=== PATIENT | female | born 1945 | race Caucasian/White ===

== ENCOUNTER 2016-06-29 10:15 | Outpatient (CLI) | payer MEDICARE, BC ==
[2016-06-29 10:58] LABS: Bilirubin Negative (Negative); Blood, Urine Negative (Negative); Clarity Clear (Clear); Glucose, Urine (Dipstick) Negative (Negative); Leukocyte Negative (Negative); Nitrite Negative (Negative); Protein, Urine (Dipstick) Negative (Neg-Trace); Urobilinogen 0.2 mg/dL (0.2-1.0); pH, Urine 5.5 (5.0-9.0)
== END 2016-06-29 10:16 ==
LOC: MADLAB 10:15
PROVIDERS: ATTEND Nurse Practitioner Family
DX: R30.0 Dysuria (principal)
CPT/HCPCS: 36415; 81003

== ENCOUNTER 2016-08-23 07:28 | Outpatient (CLI) | payer MEDICARE, BC ==
[2016-08-23 08:38] LABS: Hemoglobin A1c 5.4 % (4.0-6.0)
[2016-08-23 08:51] LABS: ALT (SGPT) 27 U/L (8-55); AST (SGOT) 19 U/L (5-34); Albumin 3.9 g/dL (3.4-4.8); Alkaline Phosphatase 95 U/L (40-150); Anion Gap 16 mmol/L (10-20); BUN (Urea Nitrogen) 10 mg/dL (9.8-20.1); Bilirubin, Direct 0.1 mg/dL (0.1-0.3); Bilirubin, Total 0.4 mg/dL (0.2-1.2); Calc. Creatinine Clearance 0 mL/min (70-130); Calcium 9.3 mg/dL (7.8-10.44); Carbon Dioxide 23 mmol/L (23-31); Chloride 106 mmol/L (98-107); Cholesterol 189 mg/dl (< 200 Desired); Estimated GFR-MDRD 82; Glucose 100 mg/dL (80-115); HDL Cholesterol 47 mg/dL (>60 Neg Risk); LDL Cholesterol, Calculated 97 mg/dL; Potassium 4.2 mmol/L (3.5-5.1); Protein, Total 7.3 g/dL (6.0-8.3); Sodium 141 mmol/L (136-145); Triglycerides 225 mg/dL (Less than 150)
[2016-08-23 08:56] LABS: #Eosinphils 0.1 thou/uL (0.0-0.7); #Lymphocytes 1.5 thou/uL (1.20-3.40); #Monocytes 0.4 thou/uL (0.11-0.59); #Neutrophils 2.7 thou/uL (1.40-6.50); %Eosinophils 2.2 % (0.0-10.0); %Lymphocytes 32.1 % (21.0-51.0); %Monocytes 7.4 % (0.0-10.0); %Neutrophils 57.3 % (42.0-75.0); Hemoglobin 15.3 g/dL (12.0-16.0); Mean Corpuscular HGB CONC 33.7 g/dL (32.0-36.0); Mean Platelet Volume 6.2 fL (7.4-10.4); Platelet Count 270 thou/uL (130-400); RBC Distribution Width 11.5 % (11.5-14.5); Red Blood Cell (RBC) Count 4.77 mill/uL (4.20-5.40); White Blood Cell (WBC) Count 4.7 thou/uL (4.8-10.8)
[2016-08-23 10:08] LABS: Clarity c (Clear); Specific Gravity, Urine 1.015 (1.005-1.030)
[2016-08-23 10:09] LABS: Bilirubin Negative (Negative); Blood, Urine Negative (Negative); Glucose, Urine (Dipstick) Negative (Negative); Leukocyte Negative (Negative); Nitrite Negative (Negative); Protein, Urine (Dipstick) Negative (Neg-Trace); Urobilinogen 0.2 mg/dL (0.2-1.0)
== END 2016-08-23 07:29 | disposition home or self-care (01) ==
LOC: MADLAB 07:28
PROVIDERS: ATTEND Family Medicine
DX: E78.00 Pure hypercholesterolemia, unspecified (principal); E03.9 Hypothyroidism, unspecified; R30.0 Dysuria; I10 Essential (primary) hypertension; Z79.899 Other long term (current) drug therapy
CPT/HCPCS: 36415; 80048; 80061; 80076; 81003; 83036; 84443; 85025

== ENCOUNTER 2017-09-23 22:31 | Emergency (ER) | payer MEDICARE, BC ==
[2017-09-24] MEDS ORDERED: methylPREDNISolone Sod Succ/PF 125 MG/2 ML VIAL ONE (02:01)
[2017-09-24] MEDS ORDERED: Dexamethasone 10 MG/ML VIAL ONE (02:01)
[2017-09-24] MEDS ORDERED: Ketorolac Tromethamine 30 MG/ML VIAL ONE (02:01)
== END 2017-09-24 03:25 | disposition home or self-care (01) ==
LOC: MADERS 22:31
DX: L56.8 Other specified acute skin changes due to ultraviolet radiation (principal); I10 Essential (primary) hypertension
CPT/HCPCS: 96374; 96375; J1100; J1885; J2930

== ENCOUNTER 2018-04-25 22:46 | Emergency (ER) | payer MEDICARE, OTHER ==
[2018-04-25] MEDS ORDERED: predniSONE 20 MG TAB ONE (23:26)
== END 2018-04-25 23:35 | disposition home or self-care (01) ==
LOC: MADERS 22:46
DX: L30.9 Dermatitis, unspecified (principal); E78.00 Pure hypercholesterolemia, unspecified; G47.30 Sleep apnea, unspecified; I10 Essential (primary) hypertension; Z79.899 Other long term (current) drug therapy; Z79.82 Long term (current) use of aspirin
CPT/HCPCS: 99282

== ENCOUNTER 2018-04-26 14:57 | Emergency (ER) | payer MEDICARE, OTHER | END 2018-04-26 15:40 | disposition home or self-care (01) | LOC: MADERS 14:57 | DX: L30.9 Dermatitis, unspecified (principal); G47.30 Sleep apnea, unspecified; I10 Essential (primary) hypertension | CPT/HCPCS: 99282 ==

== ENCOUNTER 2018-05-17 18:12 | Emergency (ER) | payer MEDICARE, OTHER ==
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
== END 2018-05-17 20:00 | disposition home or self-care (01) ==
LOC: MADERS 18:12
DX: S63.610A Unspecified sprain of right index finger, initial encounter (principal); S60.221A Contusion of right hand, initial encounter; S20.212A Contusion of left front wall of thorax, initial encounter; I10 Essential (primary) hypertension; G47.30 Sleep apnea, unspecified; V89.2XXA Person injured in unspecified motor-vehicle accident, traffic, initial encounter
CPT/HCPCS: 71046

== ENCOUNTER 2018-11-02 04:22 | Emergency (ER) | payer MEDICARE | END 2018-11-02 05:06 | disposition home or self-care (01) | LOC: MADERS 04:22 | DX: I10 Essential (primary) hypertension (principal); E03.9 Hypothyroidism, unspecified; K21.9 Gastro-esophageal reflux disease without esophagitis; E78.5 Hyperlipidemia, unspecified; G47.30 Sleep apnea, unspecified; Z79.82 Long term (current) use of aspirin; Z79.899 Other long term (current) drug therapy | CPT/HCPCS: 93005 ==

== ENCOUNTER 2019-01-10 21:09 | Emergency (ER) | payer MEDICARE | END 2019-01-10 22:00 | disposition home or self-care (01) | LOC: MADERS 21:09 | DX: L71.9 Rosacea, unspecified (principal); E03.9 Hypothyroidism, unspecified; K21.9 Gastro-esophageal reflux disease without esophagitis; E78.5 Hyperlipidemia, unspecified; I10 Essential (primary) hypertension; G47.30 Sleep apnea, unspecified | CPT/HCPCS: 99282 ==

== ENCOUNTER 2019-05-08 23:18 | Emergency (ER) | payer MEDICARE, SELFPAY ==
[2019-05-08] MEDS ORDERED: Ondansetron ODT 4 MG TAB ONE (23:42)
== END 2019-05-09 00:06 | disposition home or self-care (01) ==
LOC: MADERS 23:18
DX: J06.9 Acute upper respiratory infection, unspecified (principal); R11.0 Nausea; I10 Essential (primary) hypertension; E03.9 Hypothyroidism, unspecified; F41.9 Anxiety disorder, unspecified; G47.00 Insomnia, unspecified; K21.9 Gastro-esophageal reflux disease without esophagitis; E78.5 Hyperlipidemia, unspecified; G47.30 Sleep apnea, unspecified; Z79.899 Other long term (current) drug therapy
CPT/HCPCS: 99283; Q0162

== ENCOUNTER 2019-05-09 03:37 | Emergency (ER) | payer SELFPAY ==
[2019-05-09] MEDS ORDERED: Metoprolol Tartrate 5 MG/5 ML VIAL ONE (04:12)
[2019-05-09 04:27] LABS: #Basophils 0.1 thou/uL (0.0-0.2); #Lymphocytes 0.4 thou/uL (1.20-3.40); #Monocytes 0.5 thou/uL (0.11-0.59); #Neutrophils 7.8 thou/uL (1.40-6.50); %Basophils 0.8 % (0.0-1.0); %Eosinophils 0.2 % (0.0-10.0); %Lymphocytes 4.4 % (21.0-51.0); %Monocytes 6.1 % (0.0-10.0); %Neutrophils 88.6 % (42.0-75.0); Hemoglobin 13.9 g/dL (12.0-16.0); Mean Corpuscular HGB CONC 32.6 g/dL (32.0-36.0); Mean Corpuscular Hemoglobin 32.6 pg (27.0-31.0); Mean Corpuscular Volume 99.8 fL (78.0-98.0); Mean Platelet Volume 5.7 fL (7.4-10.4); Platelet Count 244 thou/uL (130-400); RBC Distribution Width 11.9 % (11.5-14.5); Red Blood Cell (RBC) Count 4.26 mill/uL (4.20-5.40); White Blood Cell (WBC) Count 8.8 thou/uL (4.8-10.8)
[2019-05-09 04:30] LABS: Bilirubin Negative (Negative); Blood, Urine Negative (Negative); Clarity Clear (Clear); Glucose, Urine (Dipstick) Negative (Negative); Leukocyte Negative (Negative); Nitrite Negative (Negative); Protein, Urine (Dipstick) Negative (Neg-Trace); Urobilinogen 0.2 mg/dL (Less than 2)
[2019-05-09 04:43] LABS: ALT (SGPT) 37 U/L (8-55); AST (SGOT) 19 U/L (5-34); Albumin 3.9 g/dL (3.4-4.8); Alkaline Phosphatase 91 U/L (40-110); Anion Gap 14 mmol/L (10-20); BUN (Urea Nitrogen) 11 mg/dL (9.8-20.1); Bilirubin, Total 0.7 mg/dL (0.2-1.2); Calc. Creatinine Clearance 0 mL/min (70-130); Calcium 8.9 mg/dL (7.8-10.44); Carbon Dioxide 28 mmol/L (23-31); Chloride 101 mmol/L (98-107); Estimated GFR-MDRD 74; Globulin 2.7 g/dL (2.4-3.5); Glucose 132 mg/dL (83-110); Lipase 14 U/L (8-78); Potassium 3.8 mmol/L (3.5-5.1); Protein, Total 6.6 g/dL (6.0-8.3); Sodium 139 mmol/L (136-145)
[2019-05-09] MEDS ORDERED: Acetaminophen 500 MG TAB ONE (05:08)
[2019-05-09] MEDS ORDERED: Oseltamivir 75 MG CAP ONE (05:08)
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
[2019-05-09] MEDS ORDERED: Sodium Chloride 0.9% 100 ML BAG ONE (07:27)
== END 2019-05-09 05:49 | disposition home or self-care (01) ==
LOC: MADERS 03:37
DX: J11.1 Influenza due to unidentified influenza virus with other respiratory manifestations (principal); I10 Essential (primary) hypertension; E03.9 Hypothyroidism, unspecified; E78.5 Hyperlipidemia, unspecified; F41.9 Anxiety disorder, unspecified; K21.9 Gastro-esophageal reflux disease without esophagitis; G47.30 Sleep apnea, unspecified
CPT/HCPCS: 71275; 72191; 74175; 80053; 81003; 83605; 83690; 84484; 85025; 85379; 87804; 96374; J3490

== ENCOUNTER 2019-12-03 22:03 | Emergency (ER) | payer MEDICARE ==
[2019-12-03 22:29] LABS: #Lymphocytes 0.7 thou/uL (1.20-3.40); %Basophils 0.2 % (0.0-1.0); %Lymphocytes 12.2 % (21.0-51.0); %Monocytes 0.5 % (0.0-10.0); %Neutrophils 87.1 % (42.0-75.0); Hemoglobin 15.2 g/dL (12.0-16.0); Mean Corpuscular HGB CONC 32.9 g/dL (32.0-36.0); Mean Corpuscular Hemoglobin 31.6 pg (27.0-31.0); Mean Corpuscular Volume 96.2 fL (78.0-98.0); Mean Platelet Volume 5.8 fL (7.4-10.4); Platelet Count 351 thou/uL (130-400); RBC Distribution Width 11.4 % (11.5-14.5); Red Blood Cell (RBC) Count 4.82 mill/uL (4.20-5.40); White Blood Cell (WBC) Count 5.8 thou/uL (4.8-10.8)
--- NOTE | 2019-12-03 22:39 | RAD ---
XR Chest 1 View Portable HISTORY: Chest pain COMPARISON: 05/17/2018 FINDINGS: The heart size is at upper limits of normal. The lungs are well expanded without focal area s of consolidation, pneumothorax or pleural effusions. IMPRESSION: No radiographic evidence of acute cardiopulmonary process.
[2019-12-03 22:50] LABS: ALT (SGPT) 49 U/L (8-55); AST (SGOT) 30 U/L (5-34); Albumin 4.5 g/dL (3.4-4.8); Alkaline Phosphatase 107 U/L (40-110); Anion Gap 18 mmol/L (10-20); BUN (Urea Nitrogen) 18 mg/dL (9.8-20.1); Bilirubin, Total 0.4 mg/dL (0.2-1.2); Calc. Creatinine Clearance 0 mL/min (70-130); Calcium 9.6 mg/dL (7.8-10.44); Carbon Dioxide 24 mmol/L (23-31); Chloride 102 mmol/L (98-107); Estimated GFR-MDRD 67; Globulin 3.5 g/dL (2.4-3.5); Glucose 174 mg/dL (83-110); Lipase 18 U/L (8-78); Potassium 4.1 mmol/L (3.5-5.1); Sodium 140 mmol/L (136-145)
[2019-12-03] MEDS ORDERED: Aspirin Chewable 81 MG TAB ONE (23:02)
== END 2019-12-04 02:00 | disposition short-term general hospital (02) ==
LOC: MADERS 22:03
DX: R07.2 Precordial pain (principal); E78.5 Hyperlipidemia, unspecified; I10 Essential (primary) hypertension; E03.9 Hypothyroidism, unspecified; K21.9 Gastro-esophageal reflux disease without esophagitis
CPT/HCPCS: 71045; 80053; 83690; 84484; 85025; 93005; 94760

== ENCOUNTER 2020-07-06 20:19 | Emergency (ER) | payer MEDICARE ==
[2020-07-06] MEDS ORDERED: Dexamethasone 4 MG TAB ONE (20:43)
== END 2020-07-06 21:05 | disposition home or self-care (01) ==
LOC: MADERS 20:19
DX: M77.8 Other enthesopathies, not elsewhere classified (principal); E78.5 Hyperlipidemia, unspecified; I10 Essential (primary) hypertension; E03.9 Hypothyroidism, unspecified; G47.00 Insomnia, unspecified; K21.9 Gastro-esophageal reflux disease without esophagitis; G47.30 Sleep apnea, unspecified; Z79.899 Other long term (current) drug therapy
CPT/HCPCS: 99283; J8540

== ENCOUNTER 2021-08-21 19:54 | Emergency (ER) | payer MEDICARE ==
[2021-08-21] MEDS ORDERED: Fluconazole 100 MG TAB ONE (20:53)
== END 2021-08-21 20:57 | disposition home or self-care (01) ==
LOC: MADERS 19:54
DX: B35.4 Tinea corporis (principal); E78.5 Hyperlipidemia, unspecified; I10 Essential (primary) hypertension; E03.9 Hypothyroidism, unspecified; K21.9 Gastro-esophageal reflux disease without esophagitis; Z79.899 Other long term (current) drug therapy
CPT/HCPCS: 99282

== ENCOUNTER 2024-03-09 04:35 | Emergency (ER) | payer MEDICARE ==
[2024-03-09] MEDS ORDERED: Acetaminophen 160 MG (5 ML) UDCUP ONE (05:13)
[2024-03-09] MEDS ORDERED: Ketorolac Tromethamine 30 MG (1 mL) VIAL ONE (05:13)
== END 2024-03-09 09:30 | disposition home or self-care (01) ==
LOC: MADERS 04:35
DX: S22.081A Stable burst fracture of T11-T12 vertebra, initial encounter for closed fracture (principal); I10 Essential (primary) hypertension; E03.9 Hypothyroidism, unspecified; K21.9 Gastro-esophageal reflux disease without esophagitis; W18.30XA Fall on same level, unspecified, initial encounter; Z79.82 Long term (current) use of aspirin; Z79.899 Other long term (current) drug therapy
CPT/HCPCS: 71250; 74177; 96372; 99283; J1885

== ENCOUNTER 2024-03-10 03:35 | Emergency (ER) | payer MEDICARE ==
[2024-03-10] MEDS ORDERED: Ketorolac Tromethamine 30 MG (1 mL) VIAL ONE (04:11)
[2024-03-10] MEDS ORDERED: Lidocaine 4% Patch ONE (04:11)
== END 2024-03-10 04:39 | disposition home or self-care (01) ==
LOC: MADERS 03:35
DX: M54.6 Pain in thoracic spine (principal); E78.5 Hyperlipidemia, unspecified; I10 Essential (primary) hypertension; E03.9 Hypothyroidism, unspecified; K21.9 Gastro-esophageal reflux disease without esophagitis; Z79.899 Other long term (current) drug therapy; Z79.82 Long term (current) use of aspirin
CPT/HCPCS: 96372; 99283; J1885

== ENCOUNTER 2024-10-26 17:10 | Emergency (ER) | payer MEDICARE | END 2024-10-26 17:53 | disposition home or self-care (01) | LOC: MADERS 17:10 | DX: R68.84 Jaw pain (principal); M26.601 Right temporomandibular joint disorder, unspecified; I10 Essential (primary) hypertension; E03.9 Hypothyroidism, unspecified; E78.00 Pure hypercholesterolemia, unspecified; Z79.890 Hormone replacement therapy; Z79.899 Other long term (current) drug therapy | CPT/HCPCS: 99283 ==